=== PATIENT | female | born 1945 | race Caucasian/White ===

== ENCOUNTER → 2017-04-04 | Outpatient (CLI) | payer OTHER ==
--- NOTE | 2017-04-04 09:20 | RAD ---
Examination: Acute abdomen series History: History of constipation for one week Comparison: None available Findings: The cardiomediastinal grossly appears unremarkable. There is no acute infiltrate or visualized pneumothorax identified. No evidence of free air noted under the hemidiaphragms. Cholecystectomy clips are identified. Moderate degenerative changes identified in the visualized thoracolumbar spine. The bowel gas pattern appears unremarkable. Feces and gas noted throughout the colon. Impression: 1. No acute cardiopulmonary findings. 2. Unremarkable bowel gas pattern. 3. Feces and gas noted throughout the colon. Correlate for constipation.
== END | disposition home or self-care (01) ==
LOC: DXRADRC 07:45
PROVIDERS: ATTEND Physician Assistant Medical
DX: K59.00 Constipation, unspecified (principal)
CPT/HCPCS: 74022

== ENCOUNTER → 2017-06-20 | Outpatient (CLI) | payer OTHER ==
--- NOTE | 2017-06-20 12:46 | RAD ---
Left thumb, 3 views, 06/20/2017: History: Joint pain, injury There is moderate patchy bony demineralization. No fracture or dislocation is seen. There are mild scattered degenerative changes. IMPRESSION: No acute bony abnormality is detected.
== END | disposition home or self-care (01) ==
LOC: DXRADRC 07:32
PROVIDERS: ATTEND Physician Assistant Medical
DX: M79.645 Pain in left finger(s) (principal)
CPT/HCPCS: 73140

== ENCOUNTER 2017-08-10 07:46 | Emergency (ER) | payer OTHER ==
[2017-08-10 07:50] VITALS: BP 143/78
--- NOTE | 2017-08-10 08:04 | PHYS DOC ---
Past History Past Medical History: Diabetes Past Surgical History: Knee Replacement Alcohol Use: None Drug Use: None Adult General Chief Complaint Chief Complaint: FACE PROBLEM HPI HPI Patient is a 72 year old F who presents with who fell over a broom yesterday and is coming in today for ecchymotic bruising to her face. Patient states she has no pain and did not lose consciousness when she fell and hit her head yesterday. Patient denies any other injuries. Patient states she woke up this morning and had bruising to both cheeks and upper lip internal nose and got concerned she broke something therefore came the emergency room. Review of Systems Review of Systems GEN: Denies fevers, chills, sweats HEENT: Bruising to face CV: Denies chest pain RESP: Denies shortness of air, cough GI: Denies n/v/d NEURO: Denies confusion, dizziness MSK: Denies weakness, joint pain/swelling Physical Exam Physical Exam GEN.: No apparent distress. Alert and oriented. HEENT: Ecchymotic bruising to the periorbital area bilaterally, swollen ecchymotic bruising to the nose, swollen and ecchymotic bruising to the upper lip, extraocular muscles are intact, pupils are equal and reactive bilaterally NECK: Supple. LUNGS: CTAB. HEART: RRR, S1, S2 present. Peripheral pulses intact ABDOMEN: Soft, nontender. Positive bowel sounds. EXTREMITIES: Without any cyanosis. NEUROLOGIC: Normal speech, normal tone, cranial nerves II through XII are grossly intact without any focal neurological deficits PSYCHIATRIC: Normal affect, normal mood. SKIN: No ulcerations Current Patient Data Vital Signs Vital Signs Date Time Temp Pulse Resp B/P (MAP) Pulse Ox O2 Delivery O2 Flow Rate FiO2 08/10/17 07:50 98.0 74 16 96 Room Air EKG EKG [] Radiology/Procedures Radiology/Procedures CT scan of the head/muscle fascial/C-spine: No intracranial bleed, no fracture seen[] Course & Med Decision Making Course & Med Decision Making Pertinent Labs and Imaging studies reviewed. (See chart for details) MDM: After reviewing the chart, CC/HPI/PMH, physical exam, [radiological results], I do not believe the patient sustained a significant traumatic injury warranting further workup and/or admission at this time. Patient does not have an acute intracranial process warranting emergent neurosurgical evaluation. Patient is stable for discharge. Recommended short-term follow-up with PCP in one to 2 days. Additional verbal discharge instructions were provided to the patient and that if symptoms get worse or any new symptoms arise that are worrisome to the patient she is to return to the emergency room immediately [] Dragon Disclaimer Dragon Disclaimer This chart was dictated in whole or in part using Voice Recognition software in a busy, high-work load, and often noisy Emergency Department environment. It may contain unintended and wholly unrecognized errors or omissions. Departure Departure: Impression: Primary Impression: Closed head injury Disposition: 01 HOME, SELF-CARE Condition: IMPROVED Referrals: JOHNATHAN WEISS (PCP) Patient Instructions: Concussion and Brain Injury, [id number] Additional Instructions: Please follow up with your family doctor next one to 2 days MILLIE RAHMAN DO Aug 10, 2017 08:03
--- NOTE | 2017-08-10 09:03 | RAD ---
CT scan of the head without contrast 08/10/2017 Clinical History: Fall 2 days ago with head and facial pain.. Technique: Unenhanced, contiguous, 5 mm axial sections were obtained through the head. One or more of the following individualized dose reduction techniques were utilized for this study: 1. Automated exposure control. 2. Adjustment of the mA and/or kV according to patient size. 3. Use of iterative reconstruction technique. Findings: No previous studies are available for comparison. There is generalized parenchymal atrophy. Small scattered areas of decreased attenuation are seen within the periventricular and subcortical white matter of both cerebral hemispheres consistent with areas of small vessel ischemic disease. No acute parenchymal abnormality is seen. No extra-axial fluid collection is noted. Impression: No acute intracranial abnormality is seen. CT scan of the facial bones without contrast 08/10/2017 Clinical history: Fall 2 days ago with facial pain. Technique: Unenhanced, contiguous, 0.625 mm axial sections were obtained through the facial bones and orbits. 3 mm reconstructed sagittal, axial and coronal images were obtained. One or more of the following individualized dose reduction techniques were utilized for this study: 1. Automated exposure control. 2. Adjustment of the mA and/or kV according to patient size. 3. Use of iterative reconstruction technique. Findings: No facial bone fracture is seen. Both orbits are intact. A 2.3 cm mucous retention cyst is seen involving the left maxillary sinus. No air-fluid level is seen. Degenerative changes are seen involving both TMJs, right greater than left. Impression: No facial bone fracture is seen.
--- NOTE | 2017-08-10 09:06 | RAD ---
CT scan of the cervical spine without contrast 08/10/2017 Clinical history: Fall 2 days ago with neck pain. Technique: Unenhanced, contiguous, 0.625 mm axial sections were obtained through the cervical spine. 3 mm reconstructed sagittal, axial, and and coronal images were obtained. One or more of the following individualized dose reduction techniques were utilized for this study: 1. Automated exposure control. 2. Adjustment of the mA and/or kV according to patient size. 3. Use of iterative reconstruction technique. Findings: Sagittal and coronal reconstructed images demonstrate reversal of normal cervical lordosis. Degenerative changes consisting of disc space narrowing, vertebral endplate sclerosis and mild to moderate anterior and posterior vertebral body osteophyte formation are seen throughout the cervical disc spaces. No fracture or subluxation cervical vertebrae seen. Degenerative changes are seen involving the uncovertebral and facet joints throughout the cervical disc spaces. Impression: No fracture or subluxation of the cervical vertebra is seen.
== END 2017-08-10 09:15 | disposition home or self-care (01) ==
LOC: ER 07:46
DX: S09.8XXA Other specified injuries of head, initial encounter (principal); S00.83XA Contusion of other part of head, initial encounter; E11.9 Type 2 diabetes mellitus without complications; W18.09XA Striking against other object with subsequent fall, initial encounter; Y93.89 Activity, other specified; Y99.8 Other external cause status; Y92.89 Other specified places as the place of occurrence of the external cause
CPT/HCPCS: 70450; 70486; 72125; 99284-25

== ENCOUNTER → 2017-09-03 | Outpatient (CLI) | payer OTHER ==
[2017-08-10 07:50] VITALS: BP 143/78
--- NOTE | 2017-09-03 11:46 | RAD ---
DATE: 09/03/2017 EXAM: MAMMO DIONI SCREENING BILATERAL HISTORY: Screening. The history of bilateral breast reduction is noted COMPARISON: One year earlier This study was interpreted with the benefit of Computerized Aided Detection (CAD). FINDINGS: Breast Density: FATTY The Breast Parenchyma is primarily fatty replaced. Breast parenchyma level density A.. There has not been a significant change in the appearance of the breasts compared to the previous exam. IMPRESSION: Benign findings BI-RADS CATEGORY: 2 BENIGN FINDING(S) RECOMMENDED FOLLOW-UP: 12M 12 MONTH FOLLOW-UP PQRS compliance statement: Patient information was entered into a reminder system with a target due date 09/03/2018 for the next mammogram. Mammography is a sensitive method for finding small breast cancers, but it does not detect them all and is not a substitute for careful clinical examination. A negative mammogram does not negate a clinically suspicious finding and should not result in delay in biopsying a clinically suspicious abnormality. "Our facility is accredited by the [employer] Mammography Program."
== END | disposition home or self-care (01) ==
LOC: MAMMO 09:59
PROVIDERS: ATTEND Physician Assistant Medical
DX: Z12.31 Encounter for screening mammogram for malignant neoplasm of breast (principal)
CPT/HCPCS: 77063; G0202; 77067

== ENCOUNTER → 2017-10-15 | Outpatient (CLI) | payer OTHER ==
--- NOTE | 2017-10-15 09:09 | RAD ---
KNEE LEFT 3V Clinical Indication: LEFT KNEE PAIN Comparison: Knee radiographs dated 05/27/2014 Findings: Postsurgical changes of left total knee arthroplasty. No evidence of hardware failure. Near-anatomic alignment. No acute fracture or malalignment. Unchanged ossific densities adjacent to the medial and lateral tibial plateau likely postsurgical. Vascular calcifications. IMPRESSION: 1. Post surgical changes of left total knee arthroplasty. No evidence of hardware failure. Near-anatomic alignment. 2. No acute fracture or malalignment.
== END | disposition home or self-care (01) ==
LOC: DXRAD 08:17
PROVIDERS: ATTEND Physician Assistant Medical
DX: M25.562 Pain in left knee (principal); Z96.652 Presence of left artificial knee joint
CPT/HCPCS: 73562

== ENCOUNTER → 2018-02-10 | Outpatient (CLI) | payer OTHER ==
[2018-02-09 13:44] VITALS: BP 160/64
--- NOTE | 2018-02-10 15:05 | RAD ---
3 views left shoulder 02/10/2018 2:00 AM Indication: PAIN X 1 MONTH Comparison: None Findings: There is no fracture or dislocation identified. Probable osteophyte involving the inferior glenoid noted. The humeral joint appears to be intact. Subacromial space appears to be preserved. Soft tissues are unremarkable. Impression: Mild degenerative changes of the shoulders without evidence evidence of acute osseous abnormality
== END | disposition home or self-care (01) ==
LOC: PMG 14:29
PROVIDERS: ATTEND Physician Assistant Medical
DX: M19.012 Primary osteoarthritis, left shoulder (principal)
CPT/HCPCS: 73030

== ENCOUNTER → 2018-09-04 | Outpatient (CLI) | payer OTHER ==
[2018-08-17 13:30] VITALS: BP 128/67
--- NOTE | 2018-09-04 12:57 | RAD ---
DATE: 09/04/2018 EXAM: MAMMO DIONI SCREENING BILATERAL HISTORY: Routine screening COMPARISON: 09/03/2017 This study was interpreted with the benefit of Computerized Aided Detection (CAD). Breast Density: FATTY The breast parenchyma is primarily fatty replaced. Breast parenchyma level density A. FINDINGS: 2-D and 3-D tomosynthesis imaging was performed in CC and MLO projections. There is a small spiculated 4-5 mm opacity in the right breast located just medial to the midline of the breast as best seen on CC dioni image #24. Asymmetric opacities present laterally in the left breast are unchanged. There are scattered benign type calcifications in both breasts. No suspicious microcalcifications have developed. IMPRESSION: Small spiculated right breast nodule. Sonographic evaluation is suggested. BI-RADS CATEGORY: 0 INCOMPLETE: NEEDS ADDITIONAL IMAGING EVALUATION AND/OR PRIOR MAMMOGRAMS FOR COMPARISON. RECOMMENDED FOLLOW-UP: ADD ADDITIONAL IMAGING PQRS compliance statement: Patient information was entered into a reminder system with a target due date for the next mammogram. Mammography is a sensitive method for finding small breast cancers, but it does not detect them all and is not a substitute for careful clinical examination. A negative mammogram does not negate a clinically suspicious finding and should not result in delay in biopsying a clinically suspicious abnormality. "Our facility is accredited by the [employer] Mammography Program."
== END | disposition home or self-care (01) ==
LOC: MAMMO 09:32
PROVIDERS: ATTEND Physician Assistant Medical
DX: Z12.31 Encounter for screening mammogram for malignant neoplasm of breast (principal)
CPT/HCPCS: 77063; 77067

== ENCOUNTER → 2018-09-16 | Outpatient (CLI) | payer OTHER ==
[2018-08-17 13:30] VITALS: BP 128/67
--- NOTE | 2018-09-16 13:43 | RAD ---
Right breast ultrasound, 09/16/2018: History: Abnormal mammogram A targeted ultrasound exam of the right breast was performed. At the 12:30 location approximately 5 cm from the nipple there is a small irregular hypoechoic focus. There is posterior acoustic shadowing. This process measures approximate 5 x 3 x 3 mm. It probably corresponds to the mammographic abnormality. The sonographic features are suspicious for malignancy. IMPRESSION: Suspicious right breast lesion at the 12:30 location. Ultrasound-guided biopsy is suggested for further evaluation. Note: These findings were given to the patient by the nanotechnologist at the time of the exam. She understands the recommendation for biopsy and will follow-up with the ordering provider. BI-RADS 4-suspicious abnormality
== END | disposition home or self-care (01) ==
LOC: US 12:51
PROVIDERS: ATTEND Physician Assistant Medical
DX: R92.8 Other abnormal and inconclusive findings on diagnostic imaging of breast (principal)
CPT/HCPCS: 76641

== ENCOUNTER → 2019-06-25 | Outpatient (CLI) | payer OTHER ==
[2018-12-21 13:48] VITALS: BP 123/75
--- NOTE | 2019-06-25 10:19 | RAD ---
Indication: Back pain and left hip pain TECHNIQUE: Multiple views of the lumbar spine and multiple views of the pelvis COMPARISON: None FINDINGS: Bilateral SI joints are within normal limits. Bilateral hip joints are symmetric with mild osteoarthritis. No acute fracture or dislocation. There are 5 lumbar type vertebral bodies. No compression deformity. Multilevel minimal intervertebral disc space narrowing with endplate sclerosis and small osteophyte formation. Lower lumbar spine facet arthropathy noted. Lumbar spine is in normal anatomic alignment. IMPRESSION: 1. No acute fractures or dislocation. 2. 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 Electronically signed by: Reyes Santana DO (06/25/2019 10:16 AM) [facility]
== END | disposition home or self-care (01) ==
LOC: PMG 09:22
PROVIDERS: ATTEND Physician Assistant Medical
DX: M47.816 Spondylosis without myelopathy or radiculopathy, lumbar region (principal); M46.86 Other specified inflammatory spondylopathies, lumbar region; M16.0 Bilateral primary osteoarthritis of hip; M25.78 Osteophyte, vertebrae
CPT/HCPCS: 72110; 73502

== ENCOUNTER → 2019-07-09 | Outpatient (CLI) | payer OTHER ==
[~2019-07-09] MED LIST: ASPI81TA50 PO; BUPIVACAINE MPF 0.25% 10 ML VIAL. ONE; CHOL200059 PO; CYAN10002 IJ; EXEM25TA2 PO; FERR325T14 PO; GLIM1TAB2 PO; INSU100V37 SQ; IOHEXOL 300 MG/ML 50 ML VIAL. ONE; LEVO25TA4 PO; LIDOCAINE 1% PF 30 ML VIAL. ONE; METF500T16 PO; OMEP40CA5 PO; VITAMIN PO; methylPREDNISolone ACETATE 80 MG/ML VIAL. ONE
[2019-07-09 12:23] VITALS: BP 113/57
== END | disposition home or self-care (01) ==
LOC: SURG 10:36
PROVIDERS: ATTEND Anesthesiology Pain Medicine
DX: M16.12 Unilateral primary osteoarthritis, left hip (principal); E11.9 Type 2 diabetes mellitus without complications; Z79.4 Long term (current) use of insulin; Z79.82 Long term (current) use of aspirin; Z79.890 Hormone replacement therapy; Z79.899 Other long term (current) drug therapy; Z85.3 Personal history of malignant neoplasm of breast
CPT/HCPCS: 20610; 77002; J1040; J2001; J3490; Q9967; 20611

== ENCOUNTER 2019-10-06 08:07 | Emergency (ER) | payer OTHER ==
[~2019-10-06 08:07] MED LIST changes: -BUPIVACAINE MPF 0.25% 10 ML VIAL. ONE; -GLIM1TAB2 PO; +GLIM1TAB3 PO; -IOHEXOL 300 MG/ML 50 ML VIAL. ONE; -LIDOCAINE 1% PF 30 ML VIAL. ONE; +OMEP40CA45 PO; -OMEP40CA5 PO; -methylPREDNISolone ACETATE 80 MG/ML VIAL. ONE
[2019-10-06] MEDS ORDERED: ORPHENADRINE CITRATE 60 MG/2 ML VIAL. IM ONE (08:45)
[2019-10-06] MEDS ORDERED: KETOROLAC 15 MG/ML VIAL. IM ONE (08:45)
--- NOTE | 2019-10-06 08:53 | PHYS DOC ---
Past History Past Medical History: Diabetes, Hypertension, Other Additional Past Medical Histor: thyroid Past Surgical History: Cholecystectomy, Hysterectomy, Knee Replacement Smoking: Quit Greater Than 1 Year Additional Smoking Information: " quit in the 80's" Alcohol Use: None Drug Use: None Adult General Chief Complaint Chief Complaint: MECHANICAL FALL HPI HPI Pt is a 74 y/o female with a history of knee surgeries, diabetes, HTN, and thyroid issues who presents to the ED with hip/lower back pain after a mechanical fall yesterday at 1400. She states that the pain was not as bad and was seen by a provider last afternoon for a separate issues (insect bites). Since this morning pain has been worsening. Denies LOC, head trauma, and dizziness. Denies taking any medication for relief. Review of Systems Review of Systems Constitutional: Denies fever or chills Respiratory: Denies cough or shortness of breath Cardiovascular: Denies chest pain or palpitations GI: Denies abdominal pain, nausea, or vomiting : Denies dysuria or hematuria Musculoskeletal: Reports hip and lower back pain Integument: Reports insect bites on left lower leg Neurologic: Denies headache, focal weakness or sensory changes Complete systems were reviewed and found to be within normal limits, except as documented in this note. Allergies Allergies Allergies Coded Allergies Type Severity Reaction Last Updated Verified adhesive tape Allergy Unknown 07/09/19 Yes Physical Exam Physical Exam Constitutional: Well developed, well nourished, no acute distress, non-toxic appearance HENT: Normocephalic, atraumatic, oropharynx moist Cardiovascular: Heart rate normal, regular rhythm Lungs & Thorax: Bilateral breath sounds clear to auscultation, no wheezing Abdomen: Soft, no tenderness Skin: Warm, dry, no erythema, no ecchymosis noted on left hip or sacrum Back: Tenderness to palpation on lower back, no midline tenderness. Extremities: Tenderness to palpation on left hip/sacral region, LLE ROM limited due to pain Neurologic: Alert and oriented X 3, normal motor function, normal sensory function, no focal deficits noted Psychologic: Affect normal, judgement normal, mood normal Current Patient Data Vital Signs Vital Signs Date Time Temp Pulse Resp B/P (MAP) Pulse Ox O2 Delivery O2 Flow Rate FiO2 10/06/19 08:25 98.3 95 18 95 Room Air EKG EKG [] Radiology/Procedures Radiology/Procedures EXAM: 1. Lumbar spine 3 views. 2. Pelvis 1 view. 3. Sacrum/coccyx 3 views. HISTORY: Low back, pelvic and sacrococcygeal pain after a fall. COMPARISON: None. FINDINGS: The S1 segment is lumbarized on the right. There is slight superior endplate depression centrally at L3, likely chronic. Osteopenia appears at least moderate. Disc heights are maintained. Endplate remodeling indicates mild degenerative disc disease from L2 through L5. Facet osteoarthritis appears moderate from L4 through S1. No pelvic fractures are identified. The joint spaces and alignment of both hips are maintained. No sacral or coccygeal fractures identified. There is mild bilateral sacroiliac osteoarthritis for patient age. IMPRESSION: 1. Minimal central superior endplate depression at L3 does not appear acute. Correlate for focal tenderness. No acute fractures are identified. 2. Degenerative disc disease is minimal for patient age from L2 through L5. Moderate facet osteoarthritis from L4 through S1. Electronically signed by: Yaya Chavez MD (10/06/2019 9:45 AM) [facility] Course & Med Decision Making Course & Med Decision Making Pt is a 74 y/o female with a history of diabetes, knee replacement, and HTN who presents to the ED with left hp/lower back pain status post a mechanical fall yesterday. Denies any LOC, head trauma or dizziness prior to fall. Lumbar, Pelvis, and Sacrum/coccyx x-ray with degenerative disc disease in L2-L4, moderate osteoarthritis from L4 through S1 but without fracture or dislocations. Will discharge patient w/ Naproxen, Norflex and Tylenol w/ Codeine as needed for pain. Patient stable for discharge with outpatient follow-up with PCP. Discussed findings and plan with patient and family, who acknowledge understanding and agreement. Dragon Disclaimer Dragon Disclaimer This electronic medical record was generated, in whole or in part, using a voice recognition dictation system. Departure Departure: Impression: Primary Impression: Fall Additional Impressions: Back pain Contusion Disposition: 01 HOME, SELF-CARE Condition: STABLE Referrals: JOHNATHAN WEISS (PCP) Patient Instructions: Back Pain, Adult, Vtig-[id number], Contusion, [id number], Fall Prevention and Home Safety, Ojae-ae-[id number] Scripts Naproxen (NAPROXEN) 375 Mg Tablet 1 TAB PO TID PRN PRN for PAIN, #20 TAB 0 Refills with food Prov: HOLLY ROACH DO 10/06/19 Orphenadrine Citrate (ORPHENADRINE CITRATE) 100 Mg Tablet.er 1 TAB PO BID PRN for MUSCLE PAIN, #14 TAB 0 Refills Prov: HOLLY ROACH DO 10/06/19 Acetaminophen With Codeine (TYLENOL WITH CODEINE #3 TABLET) 1 Each Tablet 1 TAB PO PRN Q6HRS PRN for pain MDD 4 Tablet(s), #14 TAB 0 Refills Prov: HOLLY ROACH DO 10/06/19 Problem Qualifiers Primary Impression: Fall Encounter type: initial encounter Qualified Codes: W19.XXXA - Unspecified fall, initial encounter Additional Impressions: Back pain Back pain location: low back pain Chronicity: acute Back pain laterality: midline Sciatica presence: without sciatica Qualified Codes: M54.5 - Low back pain Contusion Encounter type: initial encounter Contusion area: lower back Qualified Codes: S30.0XXA - Contusion of lower back and pelvis, initial encounter HOLLY ROACH DO Oct 06, 2019 08:53
[2019-10-06] MEDS ORDERED: NAPR-695 PO (09:40)
[2019-10-06] MEDS ORDERED: ORPH-16 PO (09:40)
[2019-10-06] MEDS ORDERED: ACET-704 PO (09:40)
[2019-10-06 09:45] VITALS: BP 125/73
--- NOTE | 2019-10-06 09:48 | RAD ---
EXAM: 1. Lumbar spine 3 views. 2. Pelvis 1 view. 3. Sacrum/coccyx 3 views. HISTORY: Low back, pelvic and sacrococcygeal pain after a fall. COMPARISON: None. FINDINGS: The S1 segment is lumbarized on the right. There is slight superior endplate depression centrally at L3, likely chronic. Osteopenia appears at least moderate. Disc heights are maintained. Endplate remodeling indicates mild degenerative disc disease from L2 through L5. Facet osteoarthritis appears moderate from L4 through S1. No pelvic fractures are identified. The joint spaces and alignment of both hips are maintained. No sacral or coccygeal fractures identified. There is mild bilateral sacroiliac osteoarthritis for patient age. IMPRESSION: 1. Minimal central superior endplate depression at L3 does not appear acute. Correlate for focal tenderness. No acute fractures are identified. 2. Degenerative disc disease is minimal for patient age from L2 through L5. Moderate facet osteoarthritis from L4 through S1. Electronically signed by: Yaya Chavez MD (10/06/2019 9:45 AM) [facility]
== END 2019-10-06 09:50 | disposition home or self-care (01) ==
LOC: ER 08:07
DX: S30.0XXA Contusion of lower back and pelvis, initial encounter (principal); E11.9 Type 2 diabetes mellitus without complications; I10 Essential (primary) hypertension; Z87.891 Personal history of nicotine dependence; Z90.49 Acquired absence of other specified parts of digestive tract; Z90.710 Acquired absence of both cervix and uterus; Z88.8 Allergy status to other drugs, medicaments and biological substances; W18.39XA Other fall on same level, initial encounter; Y93.89 Activity, other specified; Y92.89 Other specified places as the place of occurrence of the external cause; Y99.8 Other external cause status
CPT/HCPCS: 72100; 72170; 72220; 96372; 99284; J1885; J2360

== ENCOUNTER 2019-10-15 07:05 | Emergency (ER) | payer OTHER ==
[~2019-10-15] VITALS: Ht 160 cm; Wt 99.8 kg
[~2019-10-15 07:05] MED LIST changes: +ACET-704 PO; -GLIM1TAB3 PO; +GLIM1TAB7 PO; +NAPR-695 PO; +ORPH-16 PO
--- NOTE | 2019-10-15 07:32 | PHYS DOC ---
Past History Past Medical History: Cancer, Diabetes, Other Additional Past Medical Histor: breast cancer Past Surgical History: Other Additional Past Surgical Histo: mastectomy right side Smoking: Quit Greater Than 1 Year Alcohol Use: None Drug Use: None Adult General Chief Complaint Chief Complaint: BACK INJURY HPI HPI Patient is a 74-year-old female presents complaining of low back pain after 2 additional falls since she was seen in the emergency department on October 06, 2019. She fell while walking in from the car immediately after discharge from the emergency department, she had a second fall today later in the bathroom. She has been able to walk. She reports that the pain is severe. No relief with her home narcotic pain medicines. No loss of bowel or bladder control. She is able to ambulate. There is no radiation of the discomfort. Increased pain with movement. No fevers or chills. No previous back surgeries.[] Review of Systems Review of Systems Constitutional: Denies fever or chills [] Eyes: Denies change in visual acuity, redness, or eye pain [] HENT: Denies nasal congestion or sore throat [] Respiratory: Denies cough or shortness of breath [] Cardiovascular: No chest pain or palpitation[] GI: Denies abdominal pain, nausea, vomiting, bloody stools or diarrhea [] : Denies dysuria or hematuria [] Musculoskeletal: See history of present illness[] Integument: Denies rash or skin lesions [] Neurologic: Denies headache, focal weakness or sensory changes [] Endocrine: Denies polyuria or polydipsia [] All other systems were reviewed and found to be within normal limits, except as documented in this note. Allergies Allergies Allergies Coded Allergies Type Severity Reaction Last Updated Verified adhesive tape Allergy Unknown 07/09/19 Yes Physical Exam Physical Exam Constitutional: Well developed, well nourished, moderate discomfort, non-toxic appearance. [] HENT: Normocephalic, atraumatic, bilateral external ears normal, oropharynx moist, no oral exudates, nose normal. [] Eyes: PERRLA, EOMI, conjunctiva normal, no discharge. [] Neck: Normal range of motion, no tenderness, supple, no stridor. [] Cardiovascular:Heart rate regular rhythm, no murmur [] Lungs & Thorax: Bilateral breath sounds clear to auscultation [] Abdomen: Bowel sounds normal, soft, no tenderness, no masses, no pulsatile masses. Pelvis is stable in 3 planes [] Skin: Warm, dry, right inguinal region, and right sided skin fold of her pannus, there is an erythematous wet-appearing rash. Her left leg has a healing "spider bite" that reports is doing better than when he bandaged it up 2-3 days ago. [] Back: Tenderness across the low back. No step off or crepitus. no CVA tenderness. [] Extremities: No tenderness, no cyanosis, no clubbing, ROM intact, no edema. [] Neurologic: Alert and oriented X 3, normal motor function, normal sensory funct ion, no focal deficits noted. [] Psychologic: Affect normal, judgement normal, mood normal. [] Current Patient Data Vital Signs Vital Signs Date Time Temp Pulse Resp B/P (MAP) Pulse Ox O2 Delivery O2 Flow Rate FiO2 10/15/19 07:25 98.3 87 20 96 Room Air EKG EKG EKG shows a sinus rhythm at 68 bpm, left axis, QTC of 432 ms, no ST elevations. Interpreted by me at 0906[] Radiology/Procedures Radiology/Procedures PROCEDURE: CT LUMBAR SPINE WO CONTRAST PQRS Compliance statement: One or more of the following individualized dose reduction techniques were utilized for this examination: 1. Automated exposure control. 2. Adjustment of the mA and/or kV according to patient size. 3. Use of iterative reconstruction technique. INDICATION: Fall x2 since last evaluation and is ago. Increasing back pain TECHNIQUE: CT of the lumbar spine without IV contrast with multiplanar reformats. COMPARISON: Plain films from 10/06/2019. FINDINGS: 5 lumbar vertebral bodies. There is interval compression fracture of the L3 vertebral body with retropulsion into spinal canal causing moderate narrowing of spinal canal measuring 7 mm in AP dimension. The degree of vertebral body height loss is more than 50 percent compared to other vertebral bodies. The facet joints are in normal anatomic alignment. L1-L2: No significant disc bulge or herniation. Mild bilateral facet arthropathy. No significant neuroforaminal narrowing. L2-L3: Mild circumferential disc bulge flattening intrathecal sac. Mild bilateral facet arthropathy. Moderate to severe bilateral neuroforamina narrowing. L3-L4: Mild circumferential disc bulge flattening intrathecal sac. Mild bilateral facet arthropathy. Severe bilateral neuroforamina narrowing. L4-L5: Moderate circumferential disc bulge flattening intrathecal sac. Moderate bilateral facet arthropathy. Moderate bilateral neuroforamina narrowing. Mild spinal canal narrowing measuring 8 mm in AP dimension. L5-S1: Mild circumferential disc bulge flattening intrathecal sac. Moderate right and severe left facet arthropathy. Severe left and mild right neuroforamina narrowing. Arthritic changes in the bilateral SI joints. IMPRESSION: 1. Compression deformity with approximately 70% loss of vertebral body height of the L3 vertebral body with retropulsion in the spinal canal causing moderate narrowing of the spinal canal. See above for details. 2. Multilevel degenerative disc disease with facet arthropathy causing varying amount of neural foramina narrowing as described above.[] Course & Med Decision Making Course & Med Decision Making Pertinent Labs and Imaging studies reviewed. (See chart for details) ED course: Patient arrived, was placed in bed, and tolerated exam well. She was given initial doses of IM NSAIDs as well as muscle relaxant which did little to control her pain but she was able to be transported to and from radiology with any complications. After the initial evaluation of the CT when compared with her previous x-ray on 10/06/2019, IV access was established and baseline labs were obtained. Findings were discussed with patient and family. Consultation was made initially with orthopedic surgery who related they do not form spinal procedures at [facility]. Consultation was made with neurosurgery who accepted the patient. Further consultation then was made with the hospitalist service who will be admitting the patient at [facility]. Medical decision making: Patient appears to have a new L3 compression fracture when compared with x-rays of 10/06/2019. She is being admitted for pain management and potential operative versus interventional radiology procedure versus being outfitted with a racing mechanism. There is no evidence of neurologic or vascular compromise at this time.[] Dragon Disclaimer Dragon Disclaimer This electronic medical record was generated, in whole or in part, using a voice recognition dictation system. Departure Departure: Impression: Primary Impression: Compression fracture of L3 vertebra Additional Impressions: Diabetes mellitus Tinea Disposition: 05 TRANSFER OTHER Condition: IMPROVED Referrals: JOHNATHAN WEISS (PCP) Problem Qualifiers Primary Impression: Compression fracture of L3 vertebra Encounter type: initial encounter Qualified Codes: S32.030A - Wedge compression fracture of third lumbar vertebra, initial encounter for closed fracture Additional Impressions: Diabetes mellitus Diabetes mellitus type: type 2 Diabetes mellitus skilled nursing insulin use: unspecified superintendent container terminal insulin use status MIKE MONTEZ DO Oct 15, 2019 07:32
[2019-10-15] MEDS ORDERED: ORPHENADRINE CITRATE 60 MG/2 ML VIAL. IM ONE (07:45)
[2019-10-15] MEDS ORDERED: KETOROLAC 30 MG/ML VIAL. IM ONE (07:45)
--- NOTE | 2019-10-15 08:07 | RAD ---
PQRS Compliance statement: One or more of the following individualized dose reduction techniques were utilized for this examination: 1. Automated exposure control. 2. Adjustment of the mA and/or kV according to patient size. 3. Use of iterative reconstruction technique. INDICATION: Fall x2 since last evaluation and is ago. Increasing back pain TECHNIQUE: CT of the lumbar spine without IV contrast with multiplanar reformats. COMPARISON: Plain films from 10/06/2019. FINDINGS: 5 lumbar vertebral bodies. There is interval compression fracture of the L3 vertebral body with retropulsion into spinal canal causing moderate narrowing of spinal canal measuring 7 mm in AP dimension. The degree of vertebral body height loss is more than 50 percent compared to other vertebral bodies. The facet joints are in normal anatomic alignment. L1-L2: No significant disc bulge or herniation. Mild bilateral facet arthropathy. No significant neuroforaminal narrowing. L2-L3: Mild circumferential disc bulge flattening intrathecal sac. Mild bilateral facet arthropathy. Moderate to severe bilateral neuroforamina narrowing. L3-L4: Mild circumferential disc bulge flattening intrathecal sac. Mild bilateral facet arthropathy. Severe bilateral neuroforamina narrowing. L4-L5: Moderate circumferential disc bulge flattening intrathecal sac. Moderate bilateral facet arthropathy. Moderate bilateral neuroforamina narrowing. Mild spinal canal narrowing measuring 8 mm in AP dimension. L5-S1: Mild circumferential disc bulge flattening intrathecal sac. Moderate right and severe left facet arthropathy. Severe left and mild right neuroforamina narrowing. Arthritic changes in the bilateral SI joints. IMPRESSION: 1. Compression deformity with approximately 70% loss of vertebral body height of the L3 vertebral body with retropulsion in the spinal canal causing moderate narrowing of the spinal canal. See above for details. 2. Multilevel degenerative disc disease with facet arthropathy causing varying amount of neural foramina narrowing as described above. Electronically signed by: Reyes Santana DO (10/15/2019 8:05 AM) [facility]
[2019-10-15] MEDS: MORPHINE SULFATE 2 MG/ML DISP.SYRIN. IV/SQ PRN ×3 (08:21→10:08)
[2019-10-15 08:49] LABS: BASO % 1 % (0-3); EOS # 0.1 x10^3/uL (0.0-0.7); EOS % 1 % (0-3); HEMATOCRIT 42.1 % (36.0-47.0); HEMOGLOBIN 13.8 g/dL (12.0-15.5); LYMPH # 1.3 x10^3/uL (1.0-4.8); LYMPH % 27 % (24-48); MEAN CORPUSCULAR HEMOGLOBIN 28 pg (25-35); MEAN CORPUSCULAR HGB CONC 33 g/dL (31-37); MEAN CORPUSCULAR VOLUME 84 fL (79-100); MONO # 0.4 x10^3/uL (0.0-1.1); MONO % 9 % (0-9); NEUT % 63 % (31-73); PLATELET COUNT 101 x10^3/uL (140-400); RED CELL DISTRIBUTION WIDTH 15.6 % (11.5-14.5); WHITE BLOOD COUNT 4.8 x10^3/uL (4.0-11.0)
[2019-10-15] MEDS ORDERED: NYSTATIN TOPICAL POWDER 15GM BOTTLE. TP ONE (09:00)
[2019-10-15 09:30] VITALS: BP 115/61
[2019-10-15 09:35] LABS: CALCIUM 9.2 mg/dL (8.5-10.1); GFR 54.1; POTASSIUM 4.3 mmol/L (3.5-5.1)
[2019-10-15 09:38] LABS: BILIRUBIN,URINE MOD (NEG); CLARITY,URINE HAZY; COLOR,URINE AMBER; GLUCOSE,URINE 100 mg/dL (NEG); UROBILINOGEN,URINE 0.2 mg/dL (0.2 mg/dL)
[2019-10-15 09:39] LABS: AMORPHOUS SEDIMENT,UR PRESENT /HPF; BACTERIA,URINE MOD /HPF (0-FEW); HYALINE CASTS, URINE MOD /HPF; NITRITE,URINE POS (NEG); RBC,URINE 0 /HPF (0-2)
--- NOTE | 2019-10-15 14:07 | EKG ---
[address] [address] Test Date: 2019-10-15 Test Time: 09:01:15 Pat Name: NAOMI MCGUIRE Department: Room: Gender: F Egg Processor: BENNY : 1945 Requested By: MIKE MONTEZ Order Number: [id number] Reading MD: Romero Arrieta MD Measurements Intervals Bieber Rate: 68 P: 49 NE: 150 QRS: -4 QRSD: 74 T: 40 QT: 406 QTc: 432 Interpretive Statements SINUS RHYTHM Electronically Signed On 11-11-2019 16:42:22 BANK ANALYST by Romero Arrieta MD
== END 2019-10-15 10:00 | disposition short-term general hospital (02) ==
LOC: ER 07:05
DX: S32.030A Wedge compression fracture of third lumbar vertebra, initial encounter for closed fracture (principal); B35.9 Dermatophytosis, unspecified; E11.9 Type 2 diabetes mellitus without complications; Z87.891 Personal history of nicotine dependence; Z88.8 Allergy status to other drugs, medicaments and biological substances; W18.39XA Other fall on same level, initial encounter; Y93.01 Activity, walking, marching and hiking; Y92.89 Other specified places as the place of occurrence of the external cause; Y99.8 Other external cause status
CPT/HCPCS: 36415; 51702; 72131; 80048; 81001; 85025; 85610; 85730; 87086; 93005; 96372; 96374; 96376; 99285; J1885; J2270; J2360; 96375

== ENCOUNTER → 2019-12-16 | Outpatient (CLI) | payer MEDICARE, OTHER ==
[2019-12-16 13:28] VITALS: BP 132/72
== END | disposition home or self-care (01) ==
LOC: SURG 12:31
PROVIDERS: ATTEND Anesthesiology Pain Medicine
DX: S32.000A Wedge compression fracture of unspecified lumbar vertebra, initial encounter for closed fracture (principal); G89.4 Chronic pain syndrome; M47.816 Spondylosis without myelopathy or radiculopathy, lumbar region; M25.552 Pain in left hip; E11.9 Type 2 diabetes mellitus without complications; M16.12 Unilateral primary osteoarthritis, left hip; Z79.891 Long term (current) use of opiate analgesic; X58.XXXA Exposure to other specified factors, initial encounter; Y93.89 Activity, other specified; Y92.89 Other specified places as the place of occurrence of the external cause; Y99.8 Other external cause status
CPT/HCPCS: 99214

== ENCOUNTER → 2019-12-28 | Outpatient (CLI) | payer MEDICARE, OTHER ==
[2019-12-16 13:28] VITALS: BP 132/72
--- NOTE | 2019-12-28 11:21 | RAD ---
AP VIEW OF THE PELVIS AND TWO-VIEW STUDY OF THE RIGHT HIP Clinical indications: Right hip pain FINDINGS: No acute fracture or dislocation or lytic process is seen. No significant arthritic change of the right hip joint is seen. AP view of the pelvis demonstrates a normal-appearing left hip. 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 IMPRESSION: No significant osseous abnormality of the right hip. 2 VIEW STUDY OF THE RIGHT KNEE Clinical indications: Right knee pain FINDINGS: Total right knee arthroplasty is evident which is well aligned. No acute fracture or lytic process is seen. No significant right knee joint effusion is seen. There is a soft tissue calcification within the prepatellar tendon soft tissues measuring 3 mm in size with associated soft tissue swelling. IMPRESSION: No acute osseous abnormality. See discussion above. Electronically signed by: Luis Maldonado MD (12/28/2019 11:18 AM) [facility]
== END | disposition home or self-care (01) ==
LOC: DXRAD 08:16
PROVIDERS: ATTEND Physician Assistant Medical
DX: M17.11 Unilateral primary osteoarthritis, right knee (principal); M25.561 Pain in right knee
CPT/HCPCS: 73502; 73560

== ENCOUNTER 2020-06-01 10:01 | Emergency (ER) | payer MEDICARE, OTHER ==
[~2020-06-01] VITALS: Ht 160 cm; Wt 67.7 kg
--- NOTE | 2020-06-01 10:26 | PHYS DOC ---
Past History Past Medical History: Cancer, Diabetes, Other Additional Past Medical Histor: breast cancer Past Surgical History: Other Additional Past Surgical Histo: mastectomy right side Smoking: Quit Greater Than 1 Year Alcohol Use: None Drug Use: None General Adult EDM: Chief Complaint: MECHANICAL FALL HPI: HPI: 75-year-old female who had a mechanical ground-level fall landing on her bottom approximately 1-1/2-hour prior to arrival. Patient has a history of vertebral fracture with kyphoplasty in the past. Patient has pain in her lower thoracic and lumbar area. No neurological deficits. No bladder or bowel incontinence. No fever no vomiting or diarrhea. Patient denied hit head or have loss of consciousness. Review of Systems: Review of Systems: Constitutional: Denies fever or chills Eyes: Denies change in visual acuity HENT: Denies sore throat Respiratory: Denies cough or shortness of breath Cardiovascular: Denies chest pain or edema GI: Denies abdominal pain, nausea, vomiting, : Denies dysuria Musculoskeletal: Complains of back pain, no neck or extremity pain Integument: Denies rash Neurologic: Denies headache or focal weakness no bowel or bladder incontinence Psychiatric: Denies depression or anxiety Heart Score: Risk Factors: Risk Factors: DM, Current or recent (<one month) smoker, HTN, HLP, family history of CAD, obesity. Risk Scores: Score 0 - 3: 2.5% MACE over next 6 weeks - Discharge Home Score 4 - 6: 20.3% MACE over next 6 weeks - Admit for Clinical Observation Score 7 - 10: 72.7% MACE over next 6 weeks - Early Invasive Strategies Allergies: Allergies: Allergies Coded Allergies Type Severity Reaction Last Updated Verified adhesive tape Allergy Unknown 12/16/19 Yes Physical Exam: PE: Constitutional: Well developed, well nourished, no acute distress, non-toxic appearance. HENT: No trismus Eyes: Conjunctiva clear, EOMI Neck: Normal range of motion, no tenderness, supple, no stridor. Cardiovascular: Regular rate/rhythm, peripheral pulse intact, HOME SERVICE TECHNICIAN intact Lungs & Thorax: No respiratory distress Abdomen: No distension Skin: Diffuse: Intact, no rash Back: Tender to palpate in the lower thoracic and upper lumbar region Extremities: Normal inspection, no edema Neurologic: Alert and oriented X 3, normal motor function, , no focal deficits noted. Psychologic: Affect normal, judgement normal, mood normal. Current Patient Data: Labs: Laboratory Tests Test 06/01/20 10:50 White Blood Count 7.0 x10^3/uL Red Blood Count 5.02 x10^6/uL Hemoglobin 14.2 g/dL Hematocrit 43.5 % Mean Corpuscular Volume 87 fL Mean Corpuscular Hemoglobin 28 pg Mean Corpuscular Hemoglobin Concent 33 g/dL Red Cell Distribution Width 15.1 % Platelet Count 77 x10^3/uL Neutrophils (%) (Auto) 82 % Lymphocytes (%) (Auto) 13 % Monocytes (%) (Auto) 4 % Eosinophils (%) (Auto) 0 % Basophils (%) (Auto) 0 % Neutrophils # (Auto) 5.8 x10^3uL Lymphocytes # (Auto) 0.9 x10^3/uL Monocytes # (Auto) 0.3 x10^3/uL Eosinophils # (Auto) 0.0 x10^3/uL Basophils # (Auto) 0.0 x10^3/uL Prothrombin Time 11.5 SEC Prothromb Time International Ratio 1.1 Activated Partial Thromboplast Time 26 SEC Sodium Level 138 mmol/L Potassium Level 4.3 mmol/L Chloride Level 101 mmol/L Carbon Dioxide Level 23 mmol/L Anion Gap 14 Blood Urea Nitrogen 9 mg/dL Creatinine 1.0 mg/dL Estimated GFR (Cockcroft-Gault) 53.9 BUN/Creatinine Ratio 9 Glucose Level 213 mg/dL Calcium Level 9.8 mg/dL Total Bilirubin 1.2 mg/dL Aspartate Amino Transf (AST/SGOT) 37 U/L Alanine Aminotransferase (ALT/SGPT) 30 U/L Alkaline Phosphatase 28 U/L Total Protein 7.3 g/dL Albumin 3.6 g/dL Albumin/Globulin Ratio 1.0 Current Medications Medications (Trade) Dose Ordered Sig/Tucker Route PRN Reason Start Time Stop Time Status Last Admin Dose Admin Morphine Sulfate (Morphine 2mg Syringe) 2 mg 1X ONCE IV 06/01/20 10:30 06/01/20 10:31 DC 06/01/20 10:54 Ondansetron HCl (Zofran) 4 mg 1X ONCE IVP 06/01/20 10:30 06/01/20 10:31 DC 06/01/20 10:54 EKG: EKG: [] Radiology/Procedures: Radiology/Procedures: [address] [address] IMAGING REPORT Signed PATIENT: NAOMI MCGUIRE ACCOUNT: [id number] : 1945 LOCATION: ER AGE: 75 SEX: F EXAM STATUS: REG ER ORD. PHYSICIAN: ELKE ESPINO MD REASON: glf, back pain PROCEDURE: CT LUMBAR SPINE WO CONTRAST Exam: CT thoracic spine CT lumbar spine CLINICAL HISTORY: back pain COMPARISON: None available. TECHNIQUE: This CT study consists of contiguous axial images performed through the thoracic and lumbar spine. Sagittal and coronal reformatted images were also performed. PQRS compliance statement - One or more of the following individualized dose reduction techniques were utilized for this study: 1. Automated exposure control 2. Adjustment of the mA and/or kV according to patient size 3. Use of iterative reconstruction technique FINDINGS: For the purposes of this report there are 12 thoracic vertebral body with paired ribs and 5 nonrib-bearing lumbar-type vertebral bodies. Partial lumbarization of S1. CT thoracic spine: Mild C4-5, T5-6 and T9-10 disc height loss. Multilevel anterior endplate osteophytes are seen. Diffusely decreased bone mineral density. Mild height loss of the T11 vertebral body with kyphoplasty changes. Linear opacities in the lower lobes and lingula likely scarring/atelectasis. Small hiatal hernia. CT lumbar spine: There is approximately 15 percent height loss of the L1 vertebral body with cortical offset anteriorly suspicious for acute compression fracture. Mild flattening of the ventral thecal sac from mild posterior retropulsion of the L1 fracture. There is approximately 70 percent height loss of the L3 vertebral body post vertebral augmentation/vertebral plasty change. There is retropulsion of the posterior elements at L3 resulting in moderate central canal stenosis. Vascular calcifications are seen. Multilevel facet degenerative changes are seen. Mild L1-2 disc height loss. Mild L2-3 and L3-4 disc height loss. IMPRESSION: 1. There is approximately 50 percent height loss of the L1 vertebral body. Given the cortical offset anteriorly suspicious for acute compression fracture with mild retropulsion of the posterior elements results in mild central canal stenosis. 2. Chronic fractures of T11 and L3 vertebral bodies posterior to augmentation change. 3. Diffusely decreased bone mineral density. 4. Multilevel degenerative changes. Electronically signed by: Derek Cota MD (06/01/2020 11:09 AM) [id number] DICTATED AND SIGNED BY: DEREK COTA MD DATE: 06/01/20 1109 CC: ELKE ESPINO MD; JOHNATHAN WEISS ~ Course & Med Decision Making: Course & Med Decision Making 75-year-old female with mechanical fall. Patient has acute L1 compression fracture. Discussed with Dr. Huggins who will admit her to [facility] for further evaluation and likely kyphoplasty by interventional radiology Dragon Disclaimer: Trent Disclaimer: This electronic medical record was generated, in whole or in part, using a voice recognition dictation system. Departure Departure: Impression: Primary Impression: Compression fracture of lumbar vertebra Additional Impression: Back pain Disposition: 02 XFER S[facility]-TRM HOSP (to [facility], accepted by dr. Huggins) Condition: STABLE Referrals: JOHNATHAN WEISS (PCP) Justification of Admission: Justification of Admission: Justification of Admission Dx: N/A ELKE ESPINO MD Jun 01, 2020 10:26
[2020-06-01] MEDS ORDERED: ONDANSETRON PF 4 MG/2 ML VIAL. IVP ONE (10:30)
[2020-06-01] MEDS ORDERED: MORPHINE SULFATE 2 MG/ML DISP.SYRIN. IV ONE ×2 (10:30→12:00)
[2020-06-01 10:34] VITALS: BP 148/79
[2020-06-01 11:07] LABS: BASO % 0 % (0-3); EOS % 0 % (0-3); HEMATOCRIT 43.5 % (36.0-47.0); HEMOGLOBIN 14.2 g/dL (12.0-15.5); LYMPH # 0.9 x10^3/uL (1.0-4.8); LYMPH % 13 % (24-48); MEAN CORPUSCULAR HEMOGLOBIN 28 pg (25-35); MEAN CORPUSCULAR HGB CONC 33 g/dL (31-37); MEAN CORPUSCULAR VOLUME 87 fL (79-100); MONO # 0.3 x10^3/uL (0.0-1.1); MONO % 4 % (0-9); NEUT # 5.8 x10^3uL (1.8-7.7); NEUT % 82 % (31-73); PLATELET COUNT 77 x10^3/uL (140-400); RED BLOOD COUNT 5.02 x10^6/uL (3.50-5.40); RED CELL DISTRIBUTION WIDTH 15.1 % (11.5-14.5)
[2020-06-01 11:11] LABS: CALCIUM 9.8 mg/dL (8.5-10.1); GFR 53.9; POTASSIUM 4.3 mmol/L (3.5-5.1)
--- NOTE | 2020-06-01 11:12 | RAD ---
Exam: CT thoracic spine CT lumbar spine CLINICAL HISTORY: back pain COMPARISON: None available. TECHNIQUE: This CT study consists of contiguous axial images performed through the thoracic and lumbar spine. Sagittal and coronal reformatted images were also performed. PQRS compliance statement - One or more of the following individualized dose reduction techniques were utilized for this study: 1. Automated exposure control 2. Adjustment of the mA and/or kV according to patient size 3. Use of iterative reconstruction technique FINDINGS: For the purposes of this report there are 12 thoracic vertebral body with paired ribs and 5 nonrib-bearing lumbar-type vertebral bodies. Partial lumbarization of S1. CT thoracic spine: Mild C4-5, T5-6 and T9-10 disc height loss. Multilevel anterior endplate osteophytes are seen. Diffusely decreased bone mineral density. Mild height loss of the T11 vertebral body with kyphoplasty changes. Linear opacities in the lower lobes and lingula likely scarring/atelectasis. Small hiatal hernia. CT lumbar spine: There is approximately 15 percent height loss of the L1 vertebral body with cortical offset anteriorly suspicious for acute compression fracture. Mild flattening of the ventral thecal sac from mild posterior retropulsion of the L1 fracture. There is approximately 70 percent height loss of the L3 vertebral body post vertebral augmentation/vertebral plasty change. There is retropulsion of the posterior elements at L3 resulting in moderate central canal stenosis. Vascular calcifications are seen. Multilevel facet degenerative changes are seen. Mild L1-2 disc height loss. Mild L2-3 and L3-4 disc height loss. IMPRESSION: 1. There is approximately 50 percent height loss of the L1 vertebral body. Given the cortical offset anteriorly suspicious for acute compression fracture with mild retropulsion of the posterior elements results in mild central canal stenosis. 2. Chronic fractures of T11 and L3 vertebral bodies posterior to augmentation change. 3. Diffusely decreased bone mineral density. 4. Multilevel degenerative changes. Electronically signed by: Derek Early MD (06/01/2020 11:09 AM) [id number]
[2020-06-01 11:17] LABS: ALBUMIN 3.6 g/dL (3.4-5.0); TOTAL BILIRUBIN 1.2 mg/dL (0.2-1.0); TOTAL PROTEIN 7.3 g/dL (6.4-8.2)
== END 2020-06-01 14:18 | disposition short-term general hospital (02) ==
LOC: ER 10:01
DX: S32.010A Wedge compression fracture of first lumbar vertebra, initial encounter for closed fracture (principal); M54.6 Pain in thoracic spine; E11.9 Type 2 diabetes mellitus without complications; Z87.891 Personal history of nicotine dependence; Z20.828 Contact with and (suspected) exposure to other viral communicable diseases; Z88.8 Allergy status to other drugs, medicaments and biological substances; W18.39XA Other fall on same level, initial encounter; Y93.89 Activity, other specified; Y92.89 Other specified places as the place of occurrence of the external cause; Y99.8 Other external cause status
CPT/HCPCS: 36415; 72128; 72131; 80053; 85025; 85610; 85730; 96374; 96375; 96376; 99285; C9803; J2270; J2405; U0003